=== PATIENT | female | born 1970 | race Hispanic/Latino ===

== ENCOUNTER 2021-12-24 09:51 | Outpatient (CLI) | payer BC ==
[2021-12-24 20:11] LABS: SARS-CoV-2 PCR by NAA Not Detected (NotDetected)
== END 2021-12-24 09:52 | disposition home or self-care (01) ==
LOC: LABBT 09:51
PROVIDERS: ATTEND Student in an Organized Health Care Education/Training Program
DX: Z01.818 Encounter for other preprocedural examination (principal); R22.1 Localized swelling, mass and lump, neck; L72.3 Sebaceous cyst; R59.9 Enlarged lymph nodes, unspecified; Z20.822 Contact with and (suspected) exposure to COVID-19
CPT/HCPCS: 85014; 93005; 93010; U0003; U0005

== ENCOUNTER 2021-12-29 06:19 | Day surgery (SDC) | payer BC ==
[2021-12-25 10:59] VITALS: BMI 26.9
[2021-12-29] MEDS ORDERED: Lidocaine 1% w/Epinephrine 1:100K 20 ML VIAL ONE (08:00)
[2021-12-29] MEDS ORDERED: Fentanyl 100 MCG/2 ML VIAL ONE (08:06)
[2021-12-29] MEDS ORDERED: Promethazine HCl 25 MG/ML VIAL ONE (08:06)
[2021-12-29] MEDS ORDERED: Ondansetron PF 4 MG/2 ML Vial ONE ×2 (08:14→08:19)
[2021-12-29] MEDS ORDERED: Rocuronium Bromide 10 MG/ML (10ML VIAL) ONE (08:19)
[2021-12-29] MEDS ORDERED: ePHEDrine 50 MG/ML VIAL ONE (08:19)
[2021-12-29] MEDS ORDERED: Ketorolac Tromethamine 30 MG/ML VIAL ONE (08:19)
[2021-12-29] MEDS ORDERED: Dexamethasone 20 MG/5 ML VIAL ONE (08:19)
[2021-12-29] MEDS ORDERED: Glycopyrrolate 0.2 MG/ML 5 ML SYRINGE ONE (08:19)
[2021-12-29] MEDS ORDERED: Lidocaine 1% PF 5 ML VIAL ONE (08:19)
[2021-12-29] MEDS ORDERED: PROPOFOL 200 MG/20 ML VIAL ONE (08:19)
[2021-12-29] MEDS ORDERED: SUGAMMADEX SODIUM 200 MG/2 ML VIAL ONE (09:53)
== END 2021-12-29 12:15 | disposition home or self-care (01) ==
LOC: SDC 06:19
PROVIDERS: ATTEND Student in an Organized Health Care Education/Training Program
PROC: 0KB20ZZ Excision of Right Neck Muscle, Open Approach (ICD-10-PCS; principal; 2021-12-29)
DX: M79.89 Other specified soft tissue disorders (principal); Z79.82 Long term (current) use of aspirin
CPT/HCPCS: 88184; 88305; 93005; 93010; C1776; J1100; J1885; J2405; J2550; J2704; J3010; J3490

== ENCOUNTER 2024-04-11 08:49 | Outpatient (CLI) | payer BC | END 2024-04-11 08:50 | disposition home or self-care (01) | LOC: BICRAD 08:49 | PROVIDERS: ATTEND Family Medicine | DX: M25.561 Pain in right knee (principal); M17.11 Unilateral primary osteoarthritis, right knee ==